=== PATIENT | male | born 1975 | race Caucasian/White ===

== ENCOUNTER 2016-06-15 | Emergency (ER) | payer OTHER ==
--- NOTE | 2016-06-15 19:19 | ED ---
URI HPI - General Chief Complaint: Upper Respiratory Infection Stated Complaint: congestion Time Seen by Provider: 06/15/16 19:13 Source: patient, RN notes reviewed Mode of arrival: ambulatory Limitations: no limitations - History of Present Illness Initial Comments: 41-year-old male presents emergency Department chief complaint sinus pressure times for 5 days. Patient states that he has severe pressure. Patient states is chronic sinusitis and recurrent sinusitis. Patient states she has facial pain, ear pressure and sore throat. Patient states he coughs worse at nighttime. Denies any productive cough or shortness of breath. Denies fever, chills or neck stiffness. Patient states she's been trying multiple over-the- counter medications with no relief. Patient has NO KNOWN DRUG ALLERGIES. - Related Data Previous Rx's Medication Instructions Recorded Amoxicillin/Potassium Clav 1 tab PO Q12HR #20 tab 06/15/16 [Augmentin 875-125 Tablet] Allergies Allergy/AdvReac Type Severity Reaction Status Date / Time No Known Allergies Allergy Verified 06/15/16 19:12 Review of Systems ROS Statement: Those systems with pertinent positive or pertinent negative responses have been documented in the HPI. ROS Other: All systems not noted in ROS Statement are negative. Past Medical History Past Medical History: COPD Additional Past Medical History / Comment(s): bronchitis History of Any Multi-Drug Resistant Organisms: None Reported Past Surgical History: Cholecystectomy, Hernia Repair Past Psychological History: No Psychological Hx Reported, Anxiety, Depression Smoking Status: Current every day smoker Past Alcohol Use History: None Reported Past Drug Use History: Marijuana General Exam General appearance: alert, in no apparent distress Head exam: Present: atraumatic, normocephalic, normal inspection Eye exam: Present: normal appearance, PERRL, EOMI. Absent: scleral icterus, conjunctival injection, periorbital swelling ENT exam: Present: mucous membranes moist, TM's normal bilaterally, normal external ear exam, other (Sinus tenderness). Absent: normal oropharynx ( Postnasal drainage) Neck exam: Present: normal inspection. Absent: tenderness, meningismus, lymphadenopathy Respiratory exam: Present: normal lung sounds bilaterally. Absent: respiratory distress, wheezes, rales, rhonchi, stridor Cardiovascular Exam: Present: regular rate, normal rhythm, normal heart sounds. Absent: systolic murmur, diastolic murmur, rubs, gallop, clicks Course Vital Signs 06/15/16 19:03 Temperature 97.8 F Pulse Rate 67 Respiratory 18 Rate Blood Pressure 138/66 O2 Sat by Pulse 99 Oximetry Medical Decision Making - Medical Decision Making 41-year-old male presented for sinus congestion. Patient treated for acute sinusitis with Augmentin. Patient was advised take [id number] medications. Return parameters were discussed. Disposition Clinical Impression: Acute sinusitis Disposition: HOME SELF-CARE Condition: Stable Instructions: Sinusitis (ED) Additional Instructions: Please return to the Emergency Department if symptoms worsen or any other concerns. Prescriptions: Amoxicillin/Potassium Clav [Augmentin 875-125 Tablet] 1 tab PO Q12HR #20 tab Time of Disposition: 19:19
== END 2016-06-15 19:28 | disposition home or self-care (01) ==
CPT/HCPCS: 99283

== ENCOUNTER 2019-08-10 10:05 | Day surgery (SDC) | payer OTHER ==
[2019-08-06 10:59] VITALS: BMI 35.5
[~2019-08-10 10:05] MED LIST: LACTATED RINGERS 1,000 ML IV SCH
[2019-08-10 10:38] VITALS: RESP 16; TEMP 97.9
[2019-08-10] MEDS ORDERED: LIDOCAINE 1% (10MG/ML) FOR IV START INTRADERMA ONE (10:45)
[2019-08-10] MEDS ORDERED: PROPOFOL 10 MG/ML 20 ML VIAL IV ONE (11:16)
[2019-08-10] MEDS ORDERED: LIDOCAINE 1% INJ 10MG/ML (20 ML MDV) ONE (11:16)
--- NOTE | 2019-08-10 11:30 | P.GSHP ---
History of Present Illness H&P Date: 08/10/19 Chief Complaint: Family history colonic Cancer This a 44-year-old male presents today for colonoscopy. Patient has a brother with polyposis syndrome. Patient presents today for colonoscopy. His last colonoscopy 4 years ago. Apparently had some colon polyps removed at that time. Past Medical History Past Medical History: COPD Additional Past Medical History / Comment(s): family hx. colon cancer History of Any Multi-Drug Resistant Organisms: None Reported Past Surgical History: Cholecystectomy, Hernia Repair Additional Past Surgical History / Comment(s): colonoscopies Past Anesthesia/Blood Transfusion Reactions: No Reported Reaction Smoking Status: Current every day smoker - Past Family History Brother(s) Family Medical History: Cancer Additional Family Medical History / Comment(s): colon Father Family Medical History: Cancer Additional Family Medical History / Comment(s): colon Medications and Allergies Home Medications Medication Instructions Recorded Confirmed Type Citalopram Hydrobromide [CeleXA] 20 mg PO HS 08/06/19 08/06/19 History Allergies Allergy/AdvReac Type Severity Reaction Status Date / Time No Known Allergies Allergy Verified 08/10/19 10:30 Surgical - Exam Vital Signs Temp Pulse Resp BP Pulse Ox 97.9 F 73 16 136/79 95 08/10/19 10:37 08/10/19 10:37 08/10/19 10:37 08/10/19 10:37 08/10/19 10:37 - General well developed, well nourished, no distress - Eyes PERRL - ENT normal pinna - Neck no masses - Respiratory normal expansion - Cardiovascular Rhythm: regular - Abdomen Abdomen: soft, non tender Assessment and Plan Assessment: History colonic Polyps. Family history of polyposis syndrome We'll perform colonoscopy
--- NOTE | 2019-08-10 11:41 | P.OP ---
Date of Procedure: 08/10/19 Preoperative Diagnosis: History of colon polyps Postoperative Diagnosis: Rectal polyp Sigmoid colon polyp Procedure(s) Performed: Colonoscopy Anesthesia: MAC Surgeon: Lisandro Resendez Pathology: other (Colon polyps) Condition: stable Disposition: PACU Description of Procedure: The patient's placed on the endoscopy table lateral position. He received IV sedation. Digital rectal exam performed which revealed no ebonized. The prostate was symmetric without nodules. The flexible clot scope was then placed patient anus and passed throughout the entire colon. The ileocecal valve was visually is. The cecum, ascending and transverse colon appeared normal. The descending colon appeared normal. In the sigmoid colon a small polyp was removed with a cold forcep. Scope was brought back the rectum another polyp seen this removed with the snare. Scope was withdrawn for patient.
[2019-08-10 11:58] VITALS: BP 103/69; PULSE 65
== END 2019-08-10 12:30 | disposition home or self-care (01) ==
LOC: ORWHC2ENDO 10:05
PROVIDERS: ATTEND Surgery
DX: Z12.11 Encounter for screening for malignant neoplasm of colon (principal); K63.5 Polyp of colon; K62.1 Rectal polyp; Z86.010 Personal history of colon polyps; Z80.0 Family history of malignant neoplasm of digestive organs; Z83.71 Family history of colonic polyps; F32.9 Major depressive disorder, single episode, unspecified; F17.210 Nicotine dependence, cigarettes, uncomplicated; Z98.890 Other specified postprocedural states; Z90.49 Acquired absence of other specified parts of digestive tract; J44.9 Chronic obstructive pulmonary disease, unspecified; Z79.899 Other long term (current) drug therapy; F41.9 Anxiety disorder, unspecified; E66.01 Morbid (severe) obesity due to excess calories; Z68.36 Body mass index [BMI] 36.0-36.9, adult
CPT/HCPCS: 88305; 45380; 45385; J2001; J2704

== ENCOUNTER 2024-10-13 12:12 | Day surgery (SDC) | payer OTHER ==
[2024-10-12 09:25] VITALS: BMI 34.8
[~2024-10-13 12:12] MED LIST changes: -LACTATED RINGERS 1,000 ML IV SCH; +LIDOCAINE 1% (10MG/ML) FOR IV START INTRADERMA PRN
[2024-10-13] MEDS: IV FLUID CONTINUATION 1,000 ML IV ONE ×2 (12:46→17:14)
[2024-10-13] MEDS: LACTATED RINGERS 1,000 ML IV SCH (12:46)
[2024-10-13] MEDS ORDERED: KETAMINE HCL IN 0.9 % NACL 50 MG/5 ML SYRINGE ONE (16:07)
[2024-10-13] MEDS ORDERED: HYDROmorphone (PF) 1 MG/ML ONE (16:07)
[2024-10-13] MEDS ORDERED: PROPOFOL 10 MG/ML 20 ML VIAL IV ONE (16:07)
[2024-10-13] MEDS ORDERED: MIDAZOLAM 2 MG/2 ML VIAL ONE (16:07)
[2024-10-13] MEDS ORDERED: fentaNYL (PF) 50 MCG/ML 2 ML AMP ONE (16:07)
[2024-10-13] MEDS ORDERED: LIDOCAINE 1% INJ 10MG/ML (20 ML MDV) ONE (16:07)
[2024-10-13] MEDS: LIDOCAINE 2% URO-JET JELLY 5 ML KIT MISCELLANE ONE (16:52)
[2024-10-13] MEDS: GELATIN SPONGE,ABSORB (LARGE) 1 EACH SPONGE TOPICAL ONE (17:00)
[2024-10-13 17:59] VITALS: TEMP 9
[2024-10-13 18:12] VITALS: RESP 16
[2024-10-13] MEDS: HYDROcodone/APAP 5-325MG 1 EACH TAB PO STA (18:36)
[2024-10-13 19:12] VITALS: BP 157/89; PULSE 77
[2024-10-13 19:28] LABS: Glucose,Whole Blood 85 mg/dL (70-110)
--- NOTE | 2024-10-13 21:03 | P.OP ---
Date of Procedure: 10/13/24 Preoperative Diagnosis: hemorrhoids Postoperative Diagnosis: sigmoid polyp left lateral, right anterior, right posterior hemorrhoids Procedure(s) Performed: colonscopy w/ polypectomy hemorrhoidectomy x 3 Anesthesia: OLINDAA Surgeon: Jacob Mclaughlin Pathology: other Condition: stable Disposition: PACU Indications for Procedure: hemorrhoids Operative Findings: polyps Description of Procedure: Patient was brought to the operating room where a timeout was performed and everyone agreed w/ information recited. An adult sized olymposcope was then used to traverse the colon to the cecum. The scope was slowly retracted looking at the mucosa in a circumferential fashion. To the ascending, traverse, descending to the sigmoid colon where polyps were observed these were snared intact. The scope was then retracted out of the anus intact. The anus was then prepped and explored. There was 3 large hemorrhiods at the the left lateral, right anterior and right posterior bundles. All 3 appeared to be symptomatic as they were engorged and recent signs of bleeding. I started with the right posterior bundle as this was the worst bundle. A combination of bovie and ligasure device was used to resect the hemorrhoid bundle. Next my attention was then turned tow ards the right anterior bundle where the previous steps were repeated. lastly I used a ligasure device to resect the left lateral bundle as well. 3-0 chromic gut suture was used to closed the mucosa on all 3 sites. A hemostatic timeout was performed and no active bleeding was appreciated. A thrombin gel foam was placed in the patient's rectum and the patient was transferred pacu in stable condition.
== END 2024-10-13 19:49 | disposition home or self-care (01) ==
LOC: ORWHC2ENDO 12:12
PROVIDERS: ATTEND Surgery
DX: K63.5 Polyp of colon (principal); K64.4 Residual hemorrhoidal skin tags; K64.8 Other hemorrhoids
CPT/HCPCS: 88304; 88305; 45385; 46260; J2250; J2003; J3010; J1171; J2704